=== PATIENT | female | born 1995 | race Caucasian/White ===

== ENCOUNTER 2025-01-14 21:07 | Inpatient (IN) | payer MEDICAID, SELFPAY ==
[2025-01-14 21:08] VITALS: BP 151/83; PULSE 142; RESP 24; TEMP 37; O2SAT 97; BMI 25.4
--- NOTE | 2025-01-14 21:36 | EKG12_ITS ---
Test Reason : DKA Blood Pressure : */* mmHG Vent. Rate : 112 BPM Atrial Rate : 112 BPM P-R Int : 138 ms QRS Dur : 82 ms QT Int : 350 ms P-R-T Axes : 76 60 62 degrees QTcB Int : 477 ms Sinus tachycardia Otherwise normal ECG Confirmed by HEATH RANDLE, ROLDAN ([id number]), sound editor PATRIC WELLS ([id number]) on 01/17/2025 5:57:42 AM Referred By: Confirmed By: ROLDAN JOE MD
--- NOTE | 2025-01-14 21:38 | EDS_ITS ---
HPI History of Present Illness Chief Complaint: Hyperglycemia Informant: patient and family Narrative Narrative: 29-year-old female presenting with high blood sugars, vomiting, feeling a little dyspneic. Upper abdominal soreness started when she started vomiting. States she slept almost all day, missed her Lantus this morning, then took her first dose of insulin aspart this afternoon around 330 or 4 when she detected a blood sugar that was reading high on her monitor, and she has been feeling worse and worse. She thinks maybe she could have missed some of her aspart insulin yesterday. Denies any fevers, coughing, diarrhea. [facility] Medical History (Updated 01/14/25 @ 23:[address] Mitul Gay MD) Type 1 diabetes mellitus Allergy/AdvReac Type Severity Reaction Status Date / Time Sulfa (Sulfonamide Allergy unsure Verified 01/14/25 21:09 Antibiotics) Family History no significant family his Social History Smoking Status: Never smoker ROS ROS ED Constitutional Constitutional ED: Reports fatigue; Denies chills or fever(s) Eyes Eyes: Denies change in vision or diplopia ENT ENT ED: Denies rhinorrhea or sore throat Cardiovascular Cardiovascular: Denies chest pain or palpitations Respiratory/Chest Respiratory/Chest: Reports dyspnea; Denies cough Gastrointestinal Gastrointestinal: Reports abdominal pain, nausea and vomiting; Denies diarrhea Genitourinary Genitourinary ED: Denies dysuria or hematuria Musculoskeletal Musculoskeletal: Denies back pain or neck pain Integumentary Denies abscess or rash Neurologic Neurologic: Denies headache(s), paresthesias or weakness Psychiatric Psychiatric: Denies anxiety or suicidal thoughts EXAM Physical Exam Const Vital Signs: 01/14/25 21:08 01/14/25 21:30 01/14/25 22:07 Temperature 98.6 F Temperature Source Oral Pulse Rate 142 H 114 H Respiratory Rate 24 H Respiratory Effort Normal Non-Labored Respiratory Pattern Normal Blood Pressure 151/83 H 115/58 L Blood Pressure Mean 105 77 Pulse Ox 97 100 Oxygen Delivery Method Room Air Room Air Positive well nourished and well developed Constitutional Narrative: Appears ill while vomiting, but no distress. General Appearance ED: well developed HEENT Reports moist mucous membranes normocephalic and atraumatic Eyes PERRL and EOMs intact bilaterally Neck full ROM and supple Resp normal respiratory effort and clear to auscultation bilaterally Cardio regular rate, regular rhythm and no murmurs Rate: tachycardic GI non-tender and non-distended GI Narrative: Benign abdomen no tenderness. Auscultation: normoactive bowel sounds Palpation: soft Back/Spine no CVA tenderness General Back: other FROM Extremity normal to inspection General Extremety ED: Negative for edema, pulses abnormal or tenderness General Extremity: Negative for edema or pulses abnormal Neuro oriented x3, CN's II-XII intact bilaterally and no sensory deficits noted Sensorium / Orientation: awake and alert Motor Exam: strength 5/5 throughout Psych mental status grossly normal Skin no rashes or lesions noted and no wounds MDM MDM MDM Narrative Medical decision making narrative: Patient very tachycardic, tachypneic, clear lungs. Suspicious for DKA. Given IV fluids and Zofran while workup obtained. 1 view chest x-ray on my int erpretation is normal showing no pneumonia or free air under the diaphragm. Her BGT is reading over 500. Her venous pH returns at 7.038, her beta hydroxybutyrate is elevated, and eventually her potassium comes back in the normal range, at that point started insulin drip. She continued to vomit despite the Zofran, so Reglan was added. She vomited a streak of blood, but she was really retching hard and I suspect it is probably a minor Deb-Leavitt tear. Her blood counts look normal. Her bicarb is very low likely related to her acidosis, this is all consistent with DKA. Plan to admit the ICU discussed with hospitalist. Lab Data Attestation: I reviewed the patient's lab results. Labs: Laboratory Results - last 24 hr 01/14/25 01/14/25 21:32 21:55 WBC 12.9 H RBC 4.68 Hgb 13.6 Hct 42.9 MCV 91.7 MCH 29.1 MCHC 31.7 L RDW Std Deviation 41.5 RDW Coeff of Humaira 12.3 Plt Count 356 MPV 10.8 Immature Gran % (Auto) 0.500 Neut % (Auto) 75.1 H Lymph % (Auto) 19.5 [place] % (Auto) 4.3 Eos % (Auto) 0.4 Baso % (Auto) 0.2 Absolute Neuts (auto) 9.7 H Absolute Lymphs (auto) 2.52 Nucleated RBC % 0 Sodium 133 Potassium 4.9 Chloride 94 L Carbon Dioxide 8.9 L* Anion Gap 29 H BUN 18 Creatinine 1.10 Estim Creat Clear Calc 69.06 Est GFR (MDRD) Non-Af 70 BUN/Creatinine Ratio 16.0 Glucose 543 H* Calcium 9.3 Total Bilirubin 0.50 AST 28 ALT 25 Alkaline Phosphatase 154 H Total Protein 7.4 Albumin 4.5 Globulin 2.9 Albumin/Globulin Ratio 1.6 b-Hydroxybutyric mmol/L 6.5 Serum , Qual NEGATIVE POC Glucose > 500 H* ABG Data ABG results: ABG 01/14/25 22:45 Specimen Type SHIREEN Sample Site Not entered O2 % 21.0 VBG pH 7.04 L* VBG pO2 88 H VBG HCO3 8 L VBG Total CO2 9 L VBG O2 Sat (Calc) 91 H VBG Base Excess -23 L POC Mix VBG pCO2 Pt Tmp 30.2 L O2 Delivery Device Not entered Crit Call To/Read Back Yes Blood Gas Notified Whom dr. gay Blood Gas Notified Time 22:46:50 Radiography Diagnostic Testing: Clinical Impression(s) from Imaging Studies Chest X-Ray 01/14/25 21:59 IMPRESSION: No acute airspace abnormality. Reading Location: [facility] Rhythm Strip Rhythm Strip: Sinus Tach Rate: 140 Ectopy: None EKG Initial EKG: Attestation: I personally reviewed and interpreted this EKG as follows: Interpretation: No Acute Injury Pattern and Sinus Tachycardia Management Discussion w/another healthcare provider: Hospitalist Critical Care Time Critical Care Time: Yes Critical care time (excluding procedures): 30-74 minutes (32 min), Including time spent:, Discussing w/Patient &/or Family/Electrician Apprentice, Discussing w/Consultants, Arranging Admission or Transfer and Performing Direct Patient Care at Bedside Discharge Plan Triage Chief Complaint: Hyperglycemia ED Provider: Mitul Gay Dx/Rx/DC Orders Clinical Impression: DKA (diabetic ketoacidosis) Primary Care Provider: JENI CALDERON Referrals: [facility] Doctor,Out of [Non-Staff] - Print Language: Qatari Disposition Disposition: [facility] Care [facility]
[2025-01-14] MEDS: 0.9% Normal Saline (1000mL) 1,000 ML 999 ML IV (21:50)
[2025-01-14] MEDS: Ondansetron 4 MG/2 ML Vial IV (21:50)
[2025-01-14 21:51] LABS: Bedside Glucose > 500 mg/dL (74-106)
--- NOTE | 2025-01-14 21:59 | RAD_ITS ---
PROCEDURE: CHEST 1 VIEW (PORTABLE) 01/14/2025 REASON FOR EXAM: SOB TECHNIQUE: Frontal view of the chest. COMPARISON: None FINDINGS: Cardiomediastinal silhouette is within normal limits. Lungs are clear. No sizable pneumothorax. RAD/Chest 1 View (Portable) IMPRESSION: No acute airspace abnormality. Reading Location: [facility]
[2025-01-14 22:05] LABS: Absolute Lymphocyte Count 2.52 X10^3/uL (0.83-4.51); Absolute Neutrophil Count 9.7 X10^3/uL (2.0-7.7); Basophil# 0.02 X10^3/uL; Basophil% 0.2 % (0-1); Eosinophil# 0.05 X10^3/uL; Eosinophils% 0.4 % (0-5); Hematocrit 42.9 % (37-47); Hemoglobin 13.6 g/dL (12.0-15.0); Lymphocyte # 2.52 X10^3/ul (0.83-4.51); Lymphocyte % 19.5 % (19-41); Mean Corp Hgb Conc 31.7 g/dL (32-36); Mean Corpuscular Hgb 29.1 pg (27.0-32.0); Mean Corpuscular Volume 91.7 fL (81-99); Mean Platelet Vol. 10.8 fl (6.2-12.0); Monocyte# 0.55 X10^3/uL; Monocyte% 4.3 % (0-10); NRBC Flagged by Analyzer 0 % (0-5); Neutrophil # 9.74 X10^3/uL (2.7-7.7); Neutrophil % 75.1 % (47-70); Platelet Count 356 K/mm3 (150-450); RBC Distribution Width CV 12.3 % (11.6-14.6); RBC Distribution Width SD 41.5 fl (35.1-43.9); Red Blood Count 4.68 M/mm3 (4.2-5.4); White Blood Count 12.9 K/mm3 (4.4-11.0)
[2025-01-14 22:07] VITALS: BP 115/58; PULSE 114; O2SAT 100
[2025-01-14 22:14] LABS: Internal QC Validated? YES +Cl - CLEAR BKGD; Pregnancy, Serum, hCG Quali. NEGATIVE Negative
[2025-01-14 22:38] LABS: BETA-HYDROXYBUTYRATE 6.5 mmol/L (0.0-0.3)
[2025-01-14 22:42] LABS: ALB/GLOB Ratio 1.6 RATIO (0.9-2.4); AST(SGOT) 28 U/L (<=31); Alanine Aminotransfer ALT/SGPT 25 U/L (<=34); Albumin, Serum 4.5 g/dL (3.5-5.0); Alkaline Phosphatase 154 U/L (35-104); BUN 18 mg/dL (4-19); Calcium,Total 9.3 mg/dL (7.6-11.0); Chloride 94 mmol/L (98-108); EST Glomerular Filtration Rate 70 (>60); Estimated Creatinine Clearance 69.06 ml/min (50-250); Globulin 2.9 g/dL (2.2-4.2); Potassium 4.9 mmol/L (3.3-5.1); Protein, Total 7.4 g/dL (5.9-8.4); Sodium Level 133 mmol/L (133-145)
[2025-01-14] MEDS: Metoclopramide 10 MG/2 ML Vial 5 MG IV (22:49)
[2025-01-14 22:50] LABS: Blood Gas Specimen Type VEN; O2 Delivery Device Not entered; SITE Not entered; Time Given 22:46:50; VBG BASE EXCESS -23 mmol/L (-1.0-3.5); VBG Bicarbonate 8 mmol/L (22-26); VBG PO2 88 mmHg (25-40); VBG SO2 91 % (50-70); VBG TCO2 9 mmol/L (23-33); VBG pCO2 30.2 mmHg (41-51); VBG pH 7.04 (7.32-7.42)
[2025-01-14 22:54] LABS: Anion Gap 29 (5-15); Carbon Dioxide 8.9 mmol/L (21.0-32.0); Glucose 543 mg/dL (70-99)
[2025-01-14 23:00] VITALS: BP 106/64; PULSE 117; O2SAT 99
--- NOTE | 2025-01-14 23:08 | HP.PCM.HOS_ITS ---
HPI - General General Date of Admission: 01/14/25 Date of Service: 01/14/25 Chief Complaint: N/V, abdominal discomfort. HPI Narrative The patient is a 29 y/o F w/ PMHx: IDDM who presents to the [facility] ED on 01/14/25 with history of upper abdominal discomfort, nausea, emesis, elevated blood sugars and sensation of mild dyspnea with increased fatigue and malaise sleeping through the day missing her a.m. Lantus dose with her initial insulin administration on day of presentation approximately 4 PM when her blood sugar was read high on her monitor also reporting that she could have missed some of her short acting insulin the day prior as well with no recent fevers or chills nor any diarrhea but progressively worsening with suspected DKA prompting her to present to the ED for further evaluation. She does report this is similar to when she has been in DKA prior. From discussion she occasionally misses her insulin regimen. She was diagnosed at age 3 with diabetes. Workup in the ED included T98.6, heart rate 142, BP 151/83, respiratory rate 24, 97% on room air, CBC with WBC 12.9, hemoglobin 13.6, platelets 356 with left shift, CMP with sodium 133, potassium 4.9, chloride 94, anion gap 29, BUN/creatinine 18/1.10, GFR 70, hepatic profile not marked appearing aside alk phos 154, serum negative, hydroxybutyrate 6.5, chest x-ray with no acute cardiopulmonary finding, VBG with pH 7.04, PO288, bicarb 8, EKG with sinus tachycardia with no acute evidence of ischemia, UA pending upon requested evaluation of patient. In the ED patient ministered 1 L normal saline, Reglan 5 mg IV x 1 and Zofran 4 mg IV x 1 in addition to an insulin drip initiation. [facility] Medical History (Updated 01/14/25 @ 23:[address] Mitul Gay MD) Type 1 diabetes mellitus Allergy/AdvReac Type Severity Reaction Status Date / Time Sulfa (Sulfonamide Allergy unsure Verified 01/14/25 21:09 Antibiotics) Family History (Updated 01/14/25 @ 23:[address] Rvaen Lai MD) Mother Cancer Father No problems noted. Family History no significant family his Surgical History (Updated 01/14/25 @ 23:[address] Raven Lai MD) No history of previous surgery Social History (Updated 01/14/25 @ 23:[address] Raven Lai MD) household members: family Smoking Status: Never smoker alcohol intake: never substance use type: does not use ROS ROS Narrative Admission Review of Systems: CONSTITUTIONAL: No weight loss, fever, chills, + weakness or fatigue. HEENT: Eyes: No visual loss, blurred vision, double vision or yellow sclerae. Ears, Nose, Throat: No hearing loss, sneezing, congestion, runny nose or sore throat. SKIN: No rash or itching, lesions, wounds. CARDIOVASCULAR: No chest pain, chest pressure or chest discomfort, palpitations, edema, orthopnea, syncopal events. RESPIRATORY: + Mild dyspnea. No cough or sputum, wheezing, hemoptysis. GASTROINTESTINAL: + anorexia, nausea, vomiting, upper abdominal discomfort. No diarrhea, melena, BRBPR. GENITOURINARY: No dysuria, frequency, urgency or retention. NEUROLOGICAL: No headache, dizziness, syncope, paralysis, ataxia, numbness or tingling in the extremities, focal weakness, change in bowel or bladder control, seizure. MUSCULOSKELETAL: + muscle, back pain, joint pain or stiffness. HEMATOLOGIC: No anemia, bleeding or bruising. LYMPHATICS: No enlarged nodes. No history of splenectomy. PSYCHIATRIC: No history of depression or anxiety. ENDOCRINOLOGIC: No reports of sweating, cold or heat intolerance. No polyuria or polydipsia. ALLERGIES: No history of asthma, hives, eczema or rhinitis. Vital Signs Vital Signs Vital Signs: 01/14/25 21:08 01/14/25 21:30 01/14/25 22:07 Temperature 98.6 F Temperature Source Oral Pulse Rate 142 H 114 H Respiratory Rate 24 H Respiratory Effort Normal Non-Labored Respiratory Pattern Normal Blood Pressure 151/83 H 115/58 L Blood Pressure Mean 105 77 Pulse Ox 97 100 Oxygen Delivery Method Room Air Room Air Weight Weight: 143 lb 6 oz Body Mass Index (BMI) 25.4 Physical Exam Narrative Physical Examination: General: Awake, alert, oriented x 3 and cooperative, laying in ED bed, fatigued but no acute distress Skin: Normal color, normal turgor, no icterus, no cyanosis. HEENT: AT/NC, EOMI, PERRLA, dry MM, no carotid bruits or JVD noted. Lungs: Mildly diminished, greater bases, mildly increased respiratory rate but no distress, no rales, ronchi or wheezing. Heart: Mildly tachycardic with regular rhythm; no gallop, rub audible. Abdomen: Soft, mild generalized discomfort to palpation but no rebound or guarding, nondistended, mildly hyperactive BS, no appreciated HSM. Extremities: No cyanosis, clubbing, or edema. Neurological: Patient awake, alert, oriented as noted, cognitive function intact; pupils equally reactive to light and accommodation, cranial nerves grossly normal, moving all 4 extremities, no focal deficits, strength moderately globally decreased secondary to acute presentation complaints. Psychiatric: Affect appears fatigued otherwise normal, no acute evidence of depressive or anxiety feelings. Results Lab / Micro Data 01/14/25 21:55 01/14/25 21:55 Labs: Laboratory Results - last 24 hr 01/14/25 21:32: POC Glucose > 500 H* 01/14/25 21:55: WBC 12.9 H, RBC 4.68, Hgb 13.6, Hct 42.9, MCV 91.7, MCH 29.1, M CHC 31.7 L, RDW Std Deviation 41.5, RDW Coeff of Humaira 12.3, Plt Count 356, MPV 10.8, Immature Gran % (Auto) 0.500, Neut % (Auto) 75.1 H, Lymph % (Auto) 19.5, [place] % (Auto) 4.3, Eos % (Auto) 0.4, Baso % (Auto) 0.2, Absolute Neuts (auto) 9.7 H, Absolute Lymphs (auto) 2.52, Nucleated RBC % 0, Sodium 133, Potassium 4.9, Chloride 94 L, Carbon Dioxide 8.9 L*, Anion Gap 29 H, BUN 18, Creatinine 1.10, Estim Creat Clear Calc 69.06, Est GFR (MDRD) Non-Af 70, BUN/Creatinine Ratio 16.0, Glucose 543 H*, Calcium 9.3, Total Bilirubin 0.50, AST 28, ALT 25, A lkaline Phosphatase 154 H, Total Protein 7.4, Albumin 4.5, Globulin 2.9, Albumin/Globulin Ratio 1.6, b-Hydroxybutyric mmol/L 6.5, Serum , Qual NEGATIVE ABG Data ABG results: ABG 01/14/25 22:45 Specimen Type SHIREEN Sample Site Not entered O2 % 21.0 VBG pH 7.04 L* VBG pO2 88 H VBG HCO3 8 L VBG Total CO2 9 L VBG O2 Sat (Calc) 91 H VBG Base Excess -23 L POC Mix VBG pCO2 Pt Tmp 30.2 L O2 Delivery Device Not entered Crit Call To/Read Back Yes Blood Gas Notified Whom dr. gay Blood Gas Notified Time 22:46:50 Rhythm Strip Rhythm Strip: Sinus Tach Rate: 140 Ectopy: None Imaging Radiology Impression Chest X-Ray 01/14/25 21:59 IMPRESSION: No acute airspace abnormality. Reading Location: [facility] Assessment & Plan Assessment/Plan (1) DKA (diabetic ketoacidosis): PLAN: Plan The patient is a 29 y/o F w/ PMHx: IDDM who presents to the [facility] ED on 01/14/25 with history of upper abdominal discomfort, nausea, emesis, elevated blood sugars and sensation of mild dyspnea with increased fatigue and malaise sleeping through the day missing her a.m. Lantus dose with her initial insulin administration on day of presentation approximately 4 PM when her blood sugar was read high on her monitor also reporting that she could have missed some of her short acting insulin the day prior as well with no recent fevers or chills nor any diarrhea but progressively worsening with suspected DKA prompting her to present to the ED for further evaluation. #1. DKA w/ Diabetes mellitus type I with metabolic acidosis: Patient administered IV fluid boluses in the ED and started on an insulin drip. Will admit to ICU, continue on insulin drip, administer bicarb amp x 1, repeat ABG to assure improving, check serial K+, glucose w/ IVF changes pending these levels, serial chemistry, obtain mag, phos daily w/ repletion as needed, transition to home SC regimen when gap closed w/ overlap on drip, nutrition consultation. Maintain IV PPI. NPO status while on insulin drip. Encouraged diet and insulin regimen compliance. #2. Elevated BP without hypertensive diagnosis: Elevated BP upon presentation, suspect related with her acute presentation #1, continue to monitor and add regimen if appropriate, as needed IV hydralazine in the interim. #3. Suspected acute renal insufficiency versus AVANI, uncertain as no comparison labs from previously: Admission BUN/creatinine 18/1.10 however GFR 70, no comparison labs available, continue to aggressively hydrate given #1, repeat BMP in a.m. to further elucidate baseline renal function. #4. Leukocytosis, mild: Suspected reactive given acute presentation, urinalysis pending upon request evaluation of patient, chest x-ray not marked appearing, will continue treatment as noted above #1, repeat CBC in AM. Procalcitonin requested. #5. DVT prophylaxis: Lovenox. Charges/Coding Visit Charges Inpatient E&M: 51363 Init Hosp L3
[2025-01-14] MEDS: Insulin Lispro 100 UNIT in 0.9% Normal Saline (100mL Bag) 99 ML 6.5 UNIT CONT INF (23:30)
[2025-01-14 23:31] LABS: Mucous, Urine 0 SEEN /hpf (<or=2+); Red Blood Cells-Urine 0 SEEN /hpf (0-5)
[2025-01-14 23:32] LABS: Color, Urine Straw (Yellow); Glucose, Dipstick 1000 mg/dl (Normal); Leukocyte Esterase-Dipstick 25 /ul (Negative); Nitrite-Dipstick Negative (Negative); Occult Blood-Urine 10 /ul (Negative); Protein-Dipstick 30 mg/dl (Negative); Urine Bilirubin Dipstick Negative (Negative); Urine Clarity Sl. Cloudy (Clear); Urine Urobilinogen Normal (Normal)
[2025-01-14 23:58] VITALS: BP 123/64
[2025-01-14 23:59] VITALS: BP 123/64; PULSE 119; RESP 20; TEMP 37; O2SAT 100
[2025-01-15] VITALS (24 sets, daily range): BP systolic 93–131; BP diastolic 50–77; PULSE 81–122; RESP 13–20; TEMP 36.8–37.1; O2SAT 98–100; BMI 24.5
[2025-01-15 00:02] LABS: Bacteria 3+ /hpf (None Seen); Squamous Epithelial Cells - UA 25-50 SEEN /hpf (5-10); White Blood Cells 25-50 SEEN /hpf (0-5)
[2025-01-15 00:04] LABS: Ketone-Dipstick 150 mg/dl (Negative)
[2025-01-15] MEDS: 0.9% Normal Saline (1000mL) 1,000 ML 500 ML IV (00:06)
[2025-01-15 00:29] LABS: Bedside Glucose 493 mg/dL (74-106)
[2025-01-15 00:51] LABS: Bedside Glucose 453 mg/dL (74-106)
[2025-01-15] MEDS: 0.9% Normal Saline (1000mL) 1,000 ML 150 ML IV (00:57)
[2025-01-15 01:02] LABS: Phosphorus 5.3 mg/dL (2.7-4.5); Procalcitonin 0.24 ng/mL (<=0.10)
[2025-01-15] MEDS: Sodium Bicarbonate 8.4% 50 ML Syringe 100 MEQ IV (01:03)
[2025-01-15 02:08] LABS: Anion Gap 29 (5-15); BUN 19 mg/dL (4-19); BUN/Creat Ratio 17.5 RATIO (10-20); Calcium,Total 8.6 mg/dL (7.6-11.0); Carbon Dioxide 6.3 mmol/L (21.0-32.0); Chloride 98 mmol/L (98-108); EST Glomerular Filtration Rate 70 (>60); Estimated Creatinine Clearance 68.03 ml/min (50-250); Glucose 515 mg/dL (70-99); Potassium 5.3 mmol/L (3.3-5.1); Sodium Level 134 mmol/L (133-145)
[2025-01-15] MEDS: Pantoprazole Sodium 40 MG in 0.9% Normal Saline (100mL MB+) 100 ML 330 MG IV ×3 (02:13→21:58)
[2025-01-15] MEDS: 0.9% Saline Lock 10 ML Syringe IV ×3 (02:13→13:33)
[2025-01-15 02:19] LABS: Magnesium 1.6 mg/dL (1.5-2.2)
[2025-01-15 02:32] LABS: Allen Test Positive; Base Excess -11 mmol/L (-2 to +2); Bicarbonate 15.2 mmol/L (22-26); Blood Gas Specimen Type ART; Mode Not entered; O2 Delivery Device Room Air; PO2 93 mmHG (75-100); SITE L Radial; SO2 97 % (95-99); Total Carbon Dioxide 16 mmol/L; pCO2 29.8 mmHg (35-45); pH 7.31 (7.35-7.45)
[2025-01-15] MEDS: Dext 5%-0.45% NS 1,000 ML 150 ML IV ×2 (02:52→10:32)
[2025-01-15 03:11] LABS: Bedside Glucose 304 mg/dL (74-106)
[2025-01-15 03:11] LABS: Bedside Glucose 241 mg/dL (74-106)
[2025-01-15 03:50] LABS: Bedside Glucose 201 mg/dL (74-106)
[2025-01-15 04:59] LABS: Bedside Glucose 226 mg/dL (74-106)
[2025-01-15 05:04] LABS: Absolute Lymphocyte Count 1.25 X10^3/uL (0.83-4.51); Absolute Neutrophil Count 11.4 X10^3/uL (2.0-7.7); Basophil# 0.01 X10^3/uL; Basophil% 0.1 % (0-1); Hematocrit 35.3 % (37-47); Hemoglobin 11.5 g/dL (12.0-15.0); Lymphocyte # 1.25 X10^3/ul (0.83-4.51); Lymphocyte % 9.3 % (19-41); Mean Corp Hgb Conc 32.6 g/dL (32-36); Mean Corpuscular Hgb 29.3 pg (27.0-32.0); Mean Corpuscular Volume 89.8 fL (81-99); Mean Platelet Vol. 10.8 fl (6.2-12.0); Monocyte# 0.63 X10^3/uL; Monocyte% 4.7 % (0-10); NRBC Flagged by Analyzer 0 % (0-5); Neutrophil # 11.43 X10^3/uL (2.7-7.7); Neutrophil % 85.3 % (47-70); Platelet Count 313 K/mm3 (150-450); RBC Distribution Width CV 12.5 % (11.6-14.6); RBC Distribution Width SD 41.4 fl (35.1-43.9); Red Blood Count 3.93 M/mm3 (4.2-5.4); White Blood Count 13.4 K/mm3 (4.4-11.0)
[2025-01-15 05:39] LABS: AST(SGOT) 27 U/L (<=31); Alanine Aminotransfer ALT/SGPT 23 U/L (<=34); Albumin, Serum 3.7 g/dL (3.5-5.0); Alkaline Phosphatase 117 U/L (35-104); Anion Gap 19 (5-15); BUN 15 mg/dL (4-19); BUN/Creat Ratio 14.9 RATIO (10-20); Bilirubin, Direct 0.16 mg/dL (0.00-0.30); Calcium,Total 7.9 mg/dL (7.6-11.0); Carbon Dioxide 12.9 mmol/L (21.0-32.0); Chloride 108 mmol/L (98-108); Creatinine, Serum 0.99 mg/dL (0.70-1.20); EST Glomerular Filtration Rate 79 (>60); Estimated Creatinine Clearance 75.59 ml/min (50-250); Globulin 2.2 g/dL (2.2-4.2); Glucose 248 mg/dL (70-99); Potassium 4.1 mmol/L (3.3-5.1); Sodium Level 139 mmol/L (133-145); Total Bilirubin 0.31 mg/dL (0.00-1.30)
[2025-01-15 05:49] LABS: Bedside Glucose 228 mg/dL (74-106)
[2025-01-15 06:46] LABS: Hemoglobin A1c 11.8 % (<=5.6)
[2025-01-15 06:48] LABS: Bedside Glucose 203 mg/dL (74-106)
--- NOTE | 2025-01-15 07:15 | PCM.PN.HOSP ---
Reason for Visit Reason for Visit: Diagnoses Type 2 diabetes mellitus with ketoacidosis without coma (01/14/25) Subjective Subjective Patient is a 29-year-old female with history of diabetes mellitus type 1 who presented to the emergency department with increasing lethargy and elevated blood glucose and assessment of diabetic ketoacidosis made admitted to the intensive care unit for further management Objective Data Objective Data Vital Signs: Vital Signs Temp Pulse Resp BP Pulse Ox O2 Del Method 98.5 F 109 H 18 95/53 L 99 Room Air 01/15/25 04:00 01/15/25 07:00 01/15/25 07:00 01/15/25 07:00 01/15/25 07:00 01/15/25 07:00 Oxygen Delivery Method Room Air Weight: 62.9 kg Body Mass Index (BMI) 24.5 Intake & Output: Intake and Output for Last 24 Hours 01/13/25 01/14/25 01/15/25 23:59 23:59 23:59 Intake Total 2439.0 / 2439.0 Balance 2439.0 / 2439.0 Lab / Micro Data 01/15/25 04:39 01/15/25 08:30 Labs: Laboratory Results - last 24 hr 01/14/25 21:32: POC Glucose > 500 H* 01/14/25 21:55: WBC 12.9 H, RBC 4.68, Hgb 13.6, Hct 42.9, MCV 91.7, MCH 29.1, MCHC 31.7 L, RDW Std Deviation 41.5, RDW Coeff of Humaira 12.3, Plt Count 356, MPV 10.8, Immature Gran % (Auto) 0.500, Neut % (Auto) 75.1 H, Lymph % (Auto) 19.5, [place] % (Auto) 4.3, Eos % (Auto) 0.4, Baso % (Auto) 0.2, Absolute Neuts (auto) 9.7 H, Absolute Lymphs (auto) 2.52, Nucleated RBC % 0, Sodium 133, Potassium 4.9, Chloride 94 L, Carbon Dioxide 8.9 L*, Anion Gap 29 H, BUN 18, Creatinine 1.10, Estim Creat Clear Calc 69.06, Est GFR (MDRD) Non-Af 70, BUN/Creatinine Ratio 16.0, Glucose 543 H*, Calcium 9.3, Total Bilirubin 0.50, AST 28, ALT 25, Alkaline Phosphatase 154 H, Total Protein 7.4, Albumin 4.5, Globulin 2.9, Albumin/Globulin Ratio 1.6, b-Hydroxybutyric mmol/L 6.5, Serum , Qual NEGATIVE 01/14/25 23:13: Sodium Cancelled, Potassium Cancelled, Chloride Cancelled, Carbon Dioxide Cancelled, Anion Gap Cancelled, BUN Cancelled, Creatinine Cancelled, Est GFR (MDRD) Non-Af Cancelled, BUN/Creatinine Ratio Cancelled, Glucose Cancelled, Calcium Cancelled 01/14/25 23:20: Urine Color Straw, Urine Clarity Sl. Cloudy, Urine pH 5.0, Ur Specific [place] 1.020, Urine Protein 30 H, Urine Glucose (UA) 1000 H, Urine Ketones 150 A*, Urine Occult Blood 10 H, Urine Nitrite Negative, Urine Bilirubin Negative, Urine Urobilinogen Normal, Ur Leukocyte Esterase 25 H, Urine RBC 0 SEEN, Urine WBC 25-50 SEEN, Ur Squamous Epith Cells 25-50 SEEN, Urine Bacteria 3+, Urine Mucus 0 SEEN 01/14/25 23:27: POC Glucose 493 H* 01/15/25 00:10: Sodium 134, Potassium 5.3 H, Chloride 98, Carbon Dioxide 6.3 L*, Anion Gap 29 H, BUN 19, Creatinine 1.10, Estim Creat Clear Calc 68.03, Est GFR (MDRD) Non-Af 70, BUN/Creatinine Ratio 17.5, Glucose 515 H*, Calcium 8.6, Phosphorus 5.3 H, Magnesium 1.6, Procalcitonin 0.24 H 01/15/25 00:31: POC Glucose 453 H* 01/15/25 01:34: POC Glucose 304 H 01/15/25 02:30: POC Glucose 241 H 01/15/25 03:32: POC Glucose 201 H 01/15/25 04:34: POC Glucose 226 H 01/15/25 04:39: WBC 13.4 H, RBC 3.93 L, Hgb 11.5 L, Hct 35.3 L, MCV 89.8, MCH 29.3, MCHC 32.6, RDW Std Deviation 41.4, RDW Coeff of Humaira 12.5, Plt Count 313, MPV 10.8, Immature Gran % (Auto) 0.600, Neut % (Auto) 85.3 H, Lymph % (Auto) 9.3 L, [place] % (Auto) 4.7, Eos % (Auto) 0.0, Baso % (Auto) 0.1, Absolute Neuts (auto) 11.4 H, Absolute Lymphs (auto) 1.25, Nucleated RBC % 0, Sodium 139, Potassium 4.1, Chloride 108, Carbon Dioxide 12.9 L, Anion Gap 19 H, BUN 15, Creatinine 0.99, Estim Creat Clear Calc 75.59, Est GFR (MDRD) Non-Af 79, BUN/Creatinine Ratio 14.9, Glucose 248 H, Hemoglobin A1c 11.8, Calcium 7.9, Total Bilirubin 0.31, Direct Bilirubin 0.16, AST 27, ALT 23, Alkaline Phosphatase 117 H, Total Protein 6.0, Albumin 3.7, Globulin 2.2 01/15/25 05:31: POC Glucose 228 H 01/15/25 06:30: POC Glucose 203 H Micro: Microbiology 01/15/25 01:15 Wound - Back Skin and Soft Tissue MRSA/MSSA (PCR - Final Staphylococcus aureus ABG Data ABG results: ABG 01/14/25 01/15/25 22:45 02:28 Specimen Type SHIREEN ART Sample Site Not entered L Radial pH 7.31 L Bicarbonate Actual 15.2 L Total CO2 16 Base Excess -11 L O2 Saturation 97 O2 % 21.0 ABG pCO2 29.8 L ABG pO2 93 Tyshawn Test Positive VBG pH 7.04 L* VBG pO2 88 H VBG HCO3 8 L VBG Total CO2 9 L VBG O2 Sat (Calc) 91 H VBG Base Excess -23 L POC Mix VBG pCO2 Pt Tmp 30.2 L O2 Delivery Device Not entered Room Air Vent Mode Not entered Crit Call To/Read Back Yes Blood Gas Notified Whom dr. gay Blood Gas Notified Time 22:46:50 Radiography Diagnostic Testing: Radiology Impression Chest X-Ray 01/14/25 21:59 IMPRESSION: No acute airspace abnormality. Reading Location: [facility] Rhythm Strip Rhythm Strip: Sinus Tach Rate: 140 Ectopy: None Physical Exam Narrative GENERAL: cooperative HEENT: Atraumatic; normocephalic EYES; Anicteric, Normal Conjunctiva NECK; supple, normal thyroid, RESPIRATORY: Diminished to auscultation CARDIOVASCULAR: Regular S1 S2, GI: soft, normoactive bowel sounds, : No Renal angle tenderness; EXTREMITIES: No edema, no clubbing, MUSCULOSKELETAL: no muscle wasting NEURO: Awake; no lateralizing signs. SKIN: Open papular lesions on the PSYCH; Flat affect Assessment & Plan Assessment/Plan (1) DKA (diabetic ketoacidosis): PLAN: Plan Patient is a 29-year-old female with history of diabetes mellitus type 1 who presented to the emergency department with increasing lethargy and elevated blood glucose and assessment of diabetic ketoacidosis made admitted to the intensive care unit for further management 1. Diabetic ketoacidosis ? Patient has been admitted to the intensive care unit manage with IV fluids, systemic insulin and every 4 BMP monitoring ordered; with subsequent adjustment of insulin levels ordered 2. Metabolic acidosis ? Secondary to patient DKA do expect improvement with management of patient DKA 3. Hyperkalemia ? Pseudohyperkalemia as a result of patient hyperglycemia do expect improvement with treatment of patient's DKA 4. Sinus tachycardia ? Secondary to volume depletion patient resuscitated with IV fluid with subsequent monitoring of vitals ordered 6. Elevated blood pressure ? Patient is not a known hypertensive will monitor 7. Leukocytosis ? Reactive will continue with monitoring 8. DVT prophylaxis ? SC Lovenox Time spent in the patient's overall evaluation,decision-making process, review of diagnostic data, adjustment of management, discussion with other providers, nursing nursing and ancillary staff involved in patient's care documentation, 52 Minutes Charges/Coding Visit Charges Inpatient E&M: 12757 [facility] L3
[2025-01-15 07:51] LABS: Bedside Glucose 174 mg/dL (74-106)
[2025-01-15] MEDS: Enoxaparin 40 MG/0.4 ML Syringe SC (08:23)
[2025-01-15] MEDS: 0.9% Normal Saline (1000mL) 1,000 ML 999 ML IV (08:23)
[2025-01-15 08:49] LABS: Bedside Glucose 174 mg/dL (74-106)
[2025-01-15 08:56] LABS: Anion Gap 10 (5-15); BUN 13 mg/dL (4-19); BUN/Creat Ratio 14.4 RATIO (10-20); Calcium,Total 7.7 mg/dL (7.6-11.0); Carbon Dioxide 18.7 mmol/L (21.0-32.0); Chloride 110 mmol/L (98-108); Creatinine, Serum 0.92 mg/dL (0.70-1.20); EST Glomerular Filtration Rate 87 (>60); Estimated Creatinine Clearance 81.35 ml/min (50-250); Glucose 179 mg/dL (70-99); Potassium 3.6 mmol/L (3.3-5.1); Sodium Level 139 mmol/L (133-145)
--- NOTE | 2025-01-15 11:10 | CASEMGMT ---
RAMAKRISHNA SANCHEZ Face to Face with patient for initial transition planning/care coordination assessment. RN CM introduced self and role at [facility]. Patient lying in bed, alert and oriented. Patient willing to participate in assessment and is able to answer all questions appropriately. Care providers, pharmacy, and demographics verified. Strata: 1 PCP: Tanja Specialists: Patient follow with [employer] at home and has an appt on 01/20/25 Preferred Pharmacy: No preference for at discharge. Insurance: [facility] Prescription Benefit: yes Living Will/HPOA: none LNOK: mother, sister Living Arrangements: Patient lives with mother in a home. Patient is independent and able to ambulate stairs. Transportation: Mothers, sister. Patient interest in transportation resource as not rely so much on her family, SW notified. DME/HHC: Patient has glucometer with supplies and insulin with all supplies. No previous HHC or SNF. Patient wishes to discharge home, denies need for home health at this time. Patient states he has no further needs or concerns at this time. CM to follow for discharge planning needs that may arise. Disposition Plan: Patient to discharge home with family support and follow up plans in place. Delphine AMAYA, RN, CM
--- NOTE | 2025-01-15 11:44 | CASEMGMT ---
Patient is visiting [place] from [facility]. Patient was asking for information on [facility] transportation. SW printed out this information as well as some information on other options SW found on internet. Joanna SHAH
[2025-01-15 11:48] LABS: Bedside Glucose 38 mg/dL (74-106)
[2025-01-15 12:15] LABS: Bedside Glucose 87 mg/dL (74-106)
[2025-01-15 12:56] LABS: Bedside Glucose 108 mg/dL (74-106)
[2025-01-15 13:00] LABS: Anion Gap 11 (5-15); BUN 12 mg/dL (4-19); BUN/Creat Ratio 14.4 RATIO (10-20); Calcium,Total 7.3 mg/dL (7.6-11.0); Carbon Dioxide 17.1 mmol/L (21.0-32.0); Chloride 111 mmol/L (98-108); Creatinine, Serum 0.83 mg/dL (0.70-1.20); EST Glomerular Filtration Rate 99 (>60); Estimated Creatinine Clearance 90.17 ml/min (50-250); Glucose 117 mg/dL (70-99); Potassium 3.3 mmol/L (3.3-5.1); Sodium Level 139 mmol/L (133-145)
[2025-01-15] MEDS: Insulin Glargine-YFGN 100 UNIT/ML Pen 20 UNIT SC (13:33)
[2025-01-15 13:40] LABS: Mucous, Urine 0 SEEN /hpf (<or=2+); Red Blood Cells-Urine 0 SEEN /hpf (0-5)
[2025-01-15 13:42] LABS: Color, Urine Yellow (Yellow); Glucose, Dipstick Normal (Normal); Leukocyte Esterase-Dipstick 25 /ul (Negative); Nitrite-Dipstick Negative (Negative); Occult Blood-Urine Negative /ul (Negative); Protein-Dipstick 30 mg/dl (Negative); Urine Clarity Clear (Clear); Urine Urobilinogen 1 mg/dl (Normal)
[2025-01-15 13:49] LABS: Urine Bilirubin Dipstick 1 mg/dL (Negative)
[2025-01-15 13:51] LABS: Ketone-Dipstick 150 mg/dl (Negative)
[2025-01-15] MEDS: Insulin Lispro 100 UNIT/ML INSULN.PEN 6 UNIT SC ×2 (13:54→16:40)
[2025-01-15] MEDS: Insulin Lispro 100 UNIT/ML INSULN.PEN SC ×3 (13:55→21:58)
[2025-01-15 14:06] LABS: Bedside Glucose 163 mg/dL (74-106)
[2025-01-15 14:07] LABS: White Blood Cells 0-5 SEEN /hpf (0-5)
[2025-01-15 14:08] LABS: Bacteria RARE /hpf (None Seen); Squamous Epithelial Cells - UA 0-5 SEEN /hpf (5-10)
[2025-01-15 18:02] LABS: Bedside Glucose 194 mg/dL (74-106)
[2025-01-15 23:04] LABS: Bedside Glucose 151 mg/dL (74-106)
[2025-01-16] VITALS (7 sets, daily range): BP systolic 115–132; BP diastolic 75–94; PULSE 73–84; RESP 18; TEMP 36.6–37.3; O2SAT 96–100; BMI 24.2
[2025-01-16] MEDS: Insulin Lispro 100 UNIT/ML INSULN.PEN SC ×3 (04:57→17:06)
[2025-01-16] MEDS: Mupirocin Ointment 22gm Tube 1 APPLIC TOPICAL ×3 (04:57→22:35)
[2025-01-16 06:22] LABS: Bedside Glucose 159 mg/dL (74-106)
--- NOTE | 2025-01-16 08:05 | PCM.PN.HOSP ---
Reason for Visit Reason for Visit: Diagnoses Type 2 diabetes mellitus with ketoacidosis without coma (01/14/25) Subjective Subjective Patient was transferred to [facility] following resolution of her DKA.. Urinalysis drawn on admission came back abnormal consistent with acute cystitis. Patient started on ceftriaxone Objective Data Objective Data Vital Signs: Vital Signs Temp Pulse Resp BP Pulse Ox O2 Del Method 97.9 F 73 18 115/81 H 96 Room Air 01/16/25 04:52 01/16/25 04:52 01/16/25 04:52 01/16/25 04:52 01/16/25 07:31 01/16/25 07:31 Oxygen Delivery Method Room Air Weight: 62.9 kg Body Mass Index (BMI) 24.5 Intake & Output: Intake and Output for Last 24 Hours 01/14/25 01/15/25 01/16/25 23:59 23:59 23:59 Intake Total 5248.48 / 5248.48 Balance 5248.48 / 5248.48 Lab / Micro Data 01/16/25 08:05 01/16/25 08:05 Labs: Laboratory Results - last 24 hr 01/15/25 08:30: Sodium 139, Potassium 3.6, Chloride 110 H, Carbon Dioxide 18.7 L, Anion Gap 10, BUN 13, Creatinine 0.92, Estim Creat Clear Calc 81.35, Est GFR (MDRD) Non-Af 87, BUN/Creatinine Ratio 14.4, Glucose 179 H, Calcium 7.7 01/15/25 08:31: POC Glucose 174 H 01/15/25 11:28: POC Glucose 38 L* 01/15/25 11:58: POC Glucose 87 01/15/25 12:30: Sodium 139, Potassium 3.3, Chloride 111 H, Carbon Dioxide 17.1 L, Anion Gap 11, BUN 12, Creatinine 0.83, Estim Creat Clear Calc 90.17, Est GFR (MDRD) Non-Af 99, BUN/Creatinine Ratio 14.4, Glucose 117 H, Calcium 7.3 L 01/15/25 12:32: POC Glucose 108 H 01/15/25 13:30: Urine Color Yellow, Urine Clarity Clear, Urine pH 6.0, Ur Specific [place] 1.020, Urine Protein 30 H, Urine Glucose (UA) Normal, Urine Ketones 150 A*, Urine Occult Blood Negative, Urine Nitrite Negative, Urine Bilirubin 1 H, Urine Urobilinogen 1 H, Ur Leukocyte Esterase 25 H, Urine RBC 0 SEEN, Urine WBC 0-5 SEEN, Ur Squamous Epith Cells 0-5 SEEN, Urine Bacteria RARE, Urine Mucus 0 SEEN 01/15/25 13:48: POC Glucose 163 H 01/15/25 16:36: POC Glucose 194 H 01/15/25 21:37: POC Glucose 151 H 01/16/25 04:56: POC Glucose 159 H Micro: Microbiology 01/15/25 01:15 Wound - Back Skin and Soft Tissue MRSA/MSSA (PCR - Final Staphylococcus aureus Rhythm Strip Rhythm Strip: Sinus Tach Rate: 140 Ectopy: None Physical Exam Narrative GENERAL: cooperative HEENT: Atraumatic; normocephalic EYES; Anicteric, Normal Conjunctiva NECK; supple, normal thyroid, RESPIRATORY: Diminished to auscultation CARDIOVASCULAR: Regular S1 S2, GI: soft, normoactive bowel sounds, : No Renal angle tenderness; EXTREMITIES: No edema, no clubbing, MUSCULOSKELETAL: no muscle wasting NEURO: Awake; no lateralizing signs. SKIN: Open papular lesions on the PSYCH; Flat affect Assessment & Plan Assessment/Plan (1) DKA (diabetic ketoacidosis): PLAN: Plan Patient is a 29-year-old female with history of diabetes mellitus type 1 who presented to the emergency department with increasing lethargy and elevated blood glucose and assessment of diabetic ketoacidosis made admitted to the intensive care unit for further management 1. Diabetic ketoacidosis ? Patient has been admitted to the intensive care unit manage with IV fluids, systemic insulin and every 4 BMP monitoring ordered; with subsequent adjustment of insulin levels ordered 2. Metabolic acidosis ? Secondary to patient DKA do expect improvement with management of patient DKA 3. Hyperkalemia ? Pseudohyperkalemia as a result of patient hyperglycemia do expect improvement with treatment of patient's DKA 4. Acute cystitis ? Patient had abnormal urinalysis with pyuria as well as positive leukocyte esterase patient started on ceftriaxone cultures sent we will follow-up on 5. Sinus tachycardia ? Secondary to volume depletion patient resuscitated with IV fluid with subsequent monitoring of vitals ordered ? 01/17/2020 signed out tachycardia resolved 6. Elevated blood pressure ? Patient is not a known hypertensive will monitor ? 01/16/2025; patient blood pressure has normal 7. DVT prophylaxis ? SC Lovenox 8. Hypophosphatemia ? Corrected per protocol Time spent in the patient's overall evaluation,decision-making process, review of diagnostic data, adjustment of management, discussion with other providers, nursing nursing and ancillary staff involved in patient's care documentation, 38 Minutes Charges/Coding Visit Charges Inpatient E&M: 31181 Subs Hosp L2
[2025-01-16 08:32] LABS: Absolute Neutrophil Count 2.5 X10^3/uL (2.0-7.7); Basophil# 0.02 X10^3/uL; Basophil% 0.3 % (0-1); Eosinophil# 0.09 X10^3/uL; Eosinophils% 1.5 % (0-5); Hematocrit 38.3 % (37-47); Hemoglobin 12.6 g/dL (12.0-15.0); Lymphocyte % 51.9 % (19-41); Mean Corp Hgb Conc 32.9 g/dL (32-36); Mean Corpuscular Hgb 29.2 pg (27.0-32.0); Mean Corpuscular Volume 88.7 fL (81-99); Mean Platelet Vol. 10.1 fl (6.2-12.0); Monocyte% 6.5 % (0-10); NRBC Flagged by Analyzer 0 % (0-5); Neutrophil # 2.45 X10^3/uL (2.7-7.7); Neutrophil % 39.6 % (47-70); Platelet Count 265 K/mm3 (150-450); RBC Distribution Width CV 12.7 % (11.6-14.6); RBC Distribution Width SD 41.8 fl (35.1-43.9); Red Blood Count 4.32 M/mm3 (4.2-5.4); White Blood Count 6.2 K/mm3 (4.4-11.0)
[2025-01-16] MEDS: Insulin Lispro 100 UNIT/ML INSULN.PEN 6 UNIT SC ×3 (08:32→17:07)
[2025-01-16 08:56] LABS: Anion Gap 11 (5-15); BUN 6 mg/dL (4-19); BUN/Creat Ratio 8.8 RATIO (10-20); Calcium,Total 8.3 mg/dL (7.6-11.0); Carbon Dioxide 19.2 mmol/L (21.0-32.0); Chloride 111 mmol/L (98-108); Creatinine, Serum 0.71 mg/dL (0.70-1.20); EST Glomerular Filtration Rate 118 (>60); Estimated Creatinine Clearance 97.58 ml/min (50-250); Glucose 100 mg/dL (70-99); Phosphorus 1.7 mg/dL (2.7-4.5); Potassium 3.6 mmol/L (3.3-5.1); Sodium Level 142 mmol/L (133-145)
[2025-01-16 09:25] LABS: Bedside Glucose 104 mg/dL (74-106)
[2025-01-16] MEDS: Insulin Glargine-YFGN 100 UNIT/ML Pen 20 UNIT SC (11:19)
[2025-01-16] MEDS: 0.9% Normal Saline (1000mL) 1,000 ML 150 ML IV ×2 (11:57→19:08)
[2025-01-16] MEDS: Pantoprazole Sodium 40 MG in 0.9% Normal Saline (100mL MB+) 100 ML 330 MG IV ×2 (11:58→22:33)
[2025-01-16] MEDS: 0.9% Saline Lock 10 ML Syringe IV (12:00)
[2025-01-16] MEDS: Enoxaparin 40 MG/0.4 ML Syringe SC (12:07)
[2025-01-16] MEDS: Na Biphos/Potassium Phosphate PACKET 1 PACKET PO ×2 (12:12→22:35)
[2025-01-16] MEDS: Ceftriaxone 1 GM/50 ML BAG IV (12:33)
[2025-01-16 13:12] LABS: Bedside Glucose 297 mg/dL (74-106)
[2025-01-16 16:14] LABS: Bedside Glucose 73 mg/dL (74-106)
[2025-01-16 16:14] LABS: Bedside Glucose 76 mg/dL (74-106)
[2025-01-16 17:42] LABS: Bedside Glucose 152 mg/dL (74-106)
[2025-01-16 22:29] LABS: Bedside Glucose 102 mg/dL (74-106)
[2025-01-16] MEDS: DiphenhydrAMINE 50 MG/ML Syringe 25 MG IV (22:34)
[2025-01-17] MEDS: 0.9% Normal Saline (1000mL) 1,000 ML 150 ML IV (03:32)
[2025-01-17 03:35] VITALS: BP 115/69; PULSE 76; RESP 18; TEMP 36.9; O2SAT 98
[2025-01-17] MEDS: Mupirocin Ointment 22gm Tube 1 APPLIC TOPICAL (03:39)
[2025-01-17 05:09] LABS: Absolute Lymphocyte Count 2.44 X10^3/uL (0.83-4.51); Absolute Neutrophil Count 1.9 X10^3/uL (2.0-7.7); Basophil# 0.01 X10^3/uL; Basophil% 0.2 % (0-1); Eosinophil# 0.09 X10^3/uL; Eosinophils% 1.9 % (0-5); Hematocrit 32.9 % (37-47); Lymphocyte # 2.44 X10^3/ul (0.83-4.51); Mean Corp Hgb Conc 33.4 g/dL (32-36); Mean Corpuscular Hgb 29.7 pg (27.0-32.0); Mean Corpuscular Volume 88.9 fL (81-99); Mean Platelet Vol. 10.5 fl (6.2-12.0); Monocyte# 0.37 X10^3/uL; Monocyte% 7.7 % (0-10); NRBC Flagged by Analyzer 0 % (0-5); Neutrophil # 1.86 X10^3/uL (2.7-7.7); Platelet Count 231 K/mm3 (150-450); RBC Distribution Width CV 12.9 % (11.6-14.6); RBC Distribution Width SD 42.1 fl (35.1-43.9); White Blood Count 4.8 K/mm3 (4.4-11.0)
[2025-01-17 05:44] LABS: Anion Gap 10 (5-15); BUN 6 mg/dL (4-19); BUN/Creat Ratio 8.9 RATIO (10-20); Carbon Dioxide 19.9 mmol/L (21.0-32.0); Chloride 111 mmol/L (98-108); Creatinine, Serum 0.65 mg/dL (0.70-1.20); EST Glomerular Filtration Rate 123 (>60); Estimated Creatinine Clearance 106.59 ml/min (50-250); Glucose 110 mg/dL (70-99); Potassium 3.5 mmol/L (3.3-5.1); Sodium Level 141 mmol/L (133-145)
[2025-01-17 06:00] VITALS: BMI 24.3
[2025-01-17 06:04] LABS: Bedside Glucose 105 mg/dL (74-106)
[2025-01-17 08:15] VITALS: O2SAT 99
[2025-01-17 08:15] LABS: Bedside Glucose 92 mg/dL (74-106)
--- NOTE | 2025-01-17 08:22 | PCM.PN.HOSP ---
Reason for Visit Reason for Visit: Diagnoses Type 2 diabetes mellitus with ketoacidosis without coma (01/14/25) Subjective Subjective Feeling well. Has lesions on her back that she picks at. Objective Data Objective Data Vital Signs: Vital Signs Temp Pulse Resp BP Pulse Ox O2 Del Method 36.9 C 76 18 115/69 98 Room Air 01/17/25 03:35 01/17/25 03:35 01/17/25 03:35 01/17/25 03:35 01/17/25 03:35 01/17/25 03:35 Oxygen Delivery Method Room Air Weight: 62.3 kg Body Mass Index (BMI) 24.3 Intake & Output: Intake and Output for Last 24 Hours 01/15/25 01/16/25 01/17/25 23:59 23:59 23:59 Intake Total 5248.48 / 5248.48 2170 / 2170 1000 / 1000 Balance 5248.48 / 5248.48 2170 / 2170 1000 / 1000 Lab / Micro Data 01/17/25 04:50 01/17/25 04:50 Labs: Laboratory Results - last 24 hr 01/15/25 10:26: POC Glucose 76 01/15/25 10:28: POC Glucose 73 L 01/16/25 08:05: WBC 6.2, RBC 4.32, Hgb 12.6, Hct 38.3, MCV 88.7, MCH 29.2, MCHC 32.9, RDW Std Deviation 41.8, RDW Coeff of [place] 12.7, Plt Count 265, MPV 10.1, Immature Gran % (Auto) 0.200, Neut % (Auto) 39.6 L, Lymph % (Auto) 51.9 H, Bureau % (Auto) 6.5, Eos % (Auto) 1.5, Baso % (Auto) 0.3, Absolute Neuts (auto) 2.5, Absolute Lymphs (auto) 3.20, Nucleated RBC % 0, Sodium 142, Potassium 3.6, Chloride 111 H, Carbon Dioxide 19.2 L, Anion Gap 11, BUN 6, Creatinine 0.71, Estim Creat Clear Calc 97.58, Est GFR (MDRD) Non-Af 118, BUN/Creatinine Ratio 8.8 L, Glucose 100 H, Calcium 8.3, Phosphorus 1.7 L, Magnesium 2.0 01/16/25 08:30: POC Glucose 104 01/16/25 12:02: POC Glucose 297 H 01/16/25 17:04: POC Glucose 152 H 01/16/25 21:43: POC Glucose 102 01/17/25 03:39: POC Glucose 105 01/17/25 04:50: WBC 4.8, RBC 3.70 L, Hgb 11.0 L, Hct 32.9 L, MCV 88.9, MCH 29.7, MCHC 33.4, RDW Std Deviation 42.1, RDW Coeff of [place] 12.9, Plt Count 231, MPV 10.5, Immature Gran % (Auto) 0.200, Neut % (Auto) 39.0 L, Lymph % (Auto) 51.0 H, Bureau % (Auto) 7.7, Eos % (Auto) 1.9, Baso % (Auto) 0.2, Absolute Neuts (auto) 1.9 L, Absolute Lymphs (auto) 2.44, Nucleated RBC % 0, Sodium 141, Potassium 3.5, Chloride 111 H, Carbon Dioxide 19.9 L, Anion Gap 10, BUN 6, Creatinine 0.65 L, Estim Creat Clear Calc 106.59, Est GFR (MDRD) Non-Af 123, BUN/Creatinine Ratio 8.9 L, Glucose 110 H, Calcium 8.0 01/17/25 07:56: POC Glucose 92 Micro: Microbiology 01/15/25 01:15 Wound - Back Skin and Soft Tissue MRSA/MSSA (PCR - Final Staphylococcus aureus Rhythm Strip Rhythm Strip: Sinus Tach Rate: 140 Ectopy: None Physical Exam Const alert and no apparent distress HEENT head/scalp atraumatic and moist oral mucous membranes Resp normal respiratory effort and no retractions Extremity normal to inspection and full ROM Skin Skin Narrative: dry wounds on her back w/o erythema. Neuro Sensorium / Orientation: awake and alert Assessment & Plan Assessment/Plan (1) DKA (diabetic ketoacidosis): PLAN: Resolved. On glargine, SSI and prandial scheduled doses. Pt endorses that she had missed doses for a myriad of reasons. Sometimes when not feeling well, other when she other activities going on. PLAN: Plan Abnormal UA: not consistent with UTI. Back wound: + S. aureus. No clear infection. No additional work up. Reccomend avoiding itching, picking the lesions.
[2025-01-17 08:28] VITALS: BP 149/93; PULSE 68; RESP 18; TEMP 36.7; O2SAT 99
[2025-01-17] MEDS: Pantoprazole Sodium 40 MG in 0.9% Normal Saline (100mL MB+) 100 ML 330 MG IV (08:33)
[2025-01-17] MEDS: Enoxaparin 40 MG/0.4 ML Syringe SC (08:33)
[2025-01-17] MEDS: Na Biphos/Potassium Phosphate PACKET 1 PACKET PO (08:33)
[2025-01-17] MEDS: Insulin Lispro 100 UNIT/ML INSULN.PEN 6 UNIT SC (08:34)
[2025-01-17] MEDS: Ceftriaxone 1 GM/50 ML BAG IV (09:56)
[2025-01-17] MEDS: Insulin Glargine-YFGN 100 UNIT/ML Pen 20 UNIT SC (09:58)
[2025-01-17 11:38] LABS: Bedside Glucose 73 mg/dL (74-106)
--- NOTE | 2025-01-17 12:56 | PCM.DC.SUM ---
Providers Date of Admission: 01/14/25 Primary Care Physician: JENI CALDERON Reason For Visit: DKA Diagnosis Discharge Diagnosis (1) DKA (diabetic ketoacidosis): Status: Acute Code(s): E11.10 - Type 2 diabetes mellitus with ketoacidosis without coma Plan: Resolved. On glargine, SSI and prandial scheduled doses. Pt endorses that she had missed doses for a myriad of reasons. Sometimes when not feeling well, other when she other activities going on. Plan Abnormal UA: not consistent with UTI. Back wound: + S. aureus. No clear infection. No additional work up. Reccomend avoiding itching, picking the lesions. Medications at Discharge Home Medications insulin aspart U-100 100 unit/mL (3 mL) subcutaneous pen 6 unit subcut TID diabetes 01/15/25 insulin glargine 100 unit/mL (3 mL) subcutaneous pen (Lantus Solostar U-100 Insulin) 20 unit subcut DAILY diabetes 01/15/25 Hospital Course Operations None Procedures None Summary of Care Provided Hospital Course: Pt was in DKA. Likely from medication non-compliance. Concern for UTI by preceding hospitalist. Weight / BMI Weight Weight: 62.3 kg Body Mass Index (BMI) 24.3 ABG / Lab / Microbiology Data 01/17/25 04:50 01/17/25 04:50 Laboratory: Laboratory Results - last 24 hr 01/15/25 10:26: POC Glucose 76 01/15/25 10:28: POC Glucose 73 L 01/16/25 12:02: POC Glucose 297 H 01/16/25 17:04: POC Glucose 152 H 01/16/25 21:43: POC Glucose 102 01/17/25 03:39: POC Glucose 105 01/17/25 04:50: WBC 4.8, RBC 3.70 L, Hgb 11.0 L, Hct 32.9 L, MCV 88.9, MCH 29.7, MCHC 33.4, RDW Std Deviation 42.1, RDW Coeff of [place] 12.9, Plt Count 231, MPV 10.5, Immature Gran % (Auto) 0.200, Neut % (Auto) 39.0 L, Lymph % (Auto) 51.0 H, [place] % (Auto) 7.7, Eos % (Auto) 1.9, Baso % (Auto) 0.2, Absolute Neuts (auto) 1.9 L, Absolute Lymphs (auto) 2.44, Nucleated RBC % 0, Sodium 141, Potassium 3.5, Chloride 111 H, Carbon Dioxide 19.9 L, Anion Gap 10, BUN 6, Creatinine 0.65 L, Estim Creat Clear Calc 106.59, Est GFR (MDRD) Non-Af 123, BUN/Creatinine Ratio 8.9 L, Glucose 110 H, Calcium 8.0 01/17/25 07:56: POC Glucose 92 01/17/25 11:09: POC Glucose 73 L Microbiology: Microbiology 01/15/25 13:30 Urine, Clean Catch Urine Culture - Final Mixed Gram Positive Organisms 01/15/25 01:15 Wound - Back Skin and Soft Tissue MRSA/MSSA (PCR - Final Staphylococcus aureus D/C Instructions Discharge Diet: 2000 Calorie Control Diet DC O2, CPAP, BIPAP Needs Home O2 Discharge instructions: No Meaningful Use Info Meaningful Use Meaningful Use Diagnoses (Choose all that apply): None applicable Ischemic Stroke Statin Dosing Therapy Reference: STATIN DOSE THERAPY REFERENCE: * Patients > 75 years receive moderate or high dose statin therapy. * Patients 75 years or YOUNGER should receive HIGH intensity statin dose unless contraindicated. You will be required to document reason for non-treatment if statin daily dose does not meet guidelines. HIGH DOSE STATIN THERAPY DAILY Atorvastatin > than or = to 40 mg Rosuvastatin > than or = to 20 mg Amlodipine + Atorvastatin > than or = to 2.5/40 mg Ezetimibe + Simvastatin 10/80 mg Simvastatin 80mg Discharge Plan Admission Admit Date/Time: 01/14/25 23:13 Primary Reason for Your Visit: DKA Attending Provider: Miguel Barclay Primary Care Provider: JENI CALDERON Consulting Providers: Raven Lai; Brian Lala Instructions Additional Instructions / Restrictions: Please be compliant with your medications. If you are feeling unwell and unable to eat, please take your insulin glargine, but at a reduced dose of 10 units. Discharge Orders/Prescriptions Prescriptions: Continued insulin glargine [Lantus Solostar U-100 Insulin] 100 unit/mL (3 mL) insulin pen 20 unit subcut DAILY insulin aspart U-100 100 unit/mL (3 mL) insulin pen 6 unit subcut TID Referrals / Follow Up: JENI CALDERON [Other] - Within 2 Weeks [facility] Doctor,Out of [Non-Staff] - Disposition Disposition (needs filled in before D/C Order can be placed): Home, Self Care Charges/Coding Visit Charges Inpatient E&M: 58492 Disch Hosp
[2025-01-17] MEDS: Insulin Lispro 100 UNIT/ML INSULN.PEN SC (13:11)
[2025-01-17 13:13] VITALS: BP 134/76; PULSE 80; RESP 18; TEMP 36.9; O2SAT 100
--- NOTE | 2025-01-17 13:44 | PHA.DC.MR.R ---
Pharmacy [place] Med Reconciliation Pharmacy Service has performed discharge medication reconciliation for this patient. The patient's discharge medication list was reviewed for discrepancies and discrepancies were resolved. Medications at Discharge Home Medications insulin aspart U-100 100 unit/mL (3 mL) subcutaneous pen 6 unit subcut TID diabetes 01/15/25 insulin glargine 100 unit/mL (3 mL) subcutaneous pen (Lantus Solostar U-100 Insulin) 20 unit subcut DAILY diabetes 01/15/25
== END 2025-01-17 14:45 | disposition home or self-care (01) | DRG 420 ==
LOC: ED 23:06 → ICU 23:45 → MS3 01-15 16:35
PROVIDERS: Internal Medicine; Admitting Provider Family Medicine; Emergency Provider Emergency Medicine
DX: E10.10 Type 1 diabetes mellitus with ketoacidosis without coma (principal); Z79.4 Long term (current) use of insulin
CPT/HCPCS: 36415; 36600; 71045; 80048; 80053; 80076; 81001; 82010; 82803; 82962; 83036; 83735; 84100; 84145; 84703; 85025; 87086; 87088; 87640; 93005; 94668; 94762; 97802; 99285; A4216; J2405